=== PATIENT | female | born 1930 | race American Indian/Alaskan Native ===

== ENCOUNTER 2017-07-13 11:46 | Inpatient (IN) | payer MEDICARE ==
--- NOTE | 2017-07-13 12:38 | XRay Report ---
AP CHEST: HISTORY: Shortness of breath The lungs are severely hyperinflated consistent with advanced emphysema. No evidence for pneumonia, pleural fluid or pneumothorax. No pulmonary mass. Heart size and pulmonary vascularity are within normal limits. The bony structures are intact. IMPRESSION: Advanced emphysema. No acute process identified.
--- NOTE | 2017-07-13 12:42 | Emergency Department Report ---
ED Shortness of Breath HPI - General Chief Complaint: Dyspnea/Respdistress Stated Complaint: RAZ Time Seen by Provider: 07/13/17 12:33 Source: EMS Mode of arrival: Ambulatory Limitations: Physical Limitation - History of Present Illness Initial Comments: Patient is 86 years old female brought by EMS from home with a chief complaint of shortness of breath. Patient has history of COPD and dementia. EMS stated that family told him that she denies shortness of breath for the last 2-3 days. Initial oxygen saturation was 87% on room air. CVA breathing treatment and her oxygen saturation now is in the 90. Patient stated that she's been coughing also. She denied any fever, nausea or vomiting. MD Complaint: shortness of breath, cough - Related Data Home Medications Medication Instructions Recorded Confirmed Last Taken ALPRAZolam [Xanax] 1 mg PO QHS 07/13/17 07/13/17 Unknown Sennosides [Senna] 8.6 mg PO DAILY 07/13/17 07/13/17 Unknown diphenhydrAMINE [Benadryl CAP] 25 mg PO Q8HR PRN 07/13/17 07/13/17 Unknown traMADol [Ultram] 50 mg PO Q4HR PRN 07/13/17 07/13/17 Unknown Allergies Allergy/AdvReac Type Severity Reaction Status Date / Time No Known Allergies Allergy Unverified 07/13/17 12:09 ED Review of Systems ROS: Stated complaint: RAZ Other details as noted in HPI Comment: All other systems reviewed and negative Constitutional: denies: chills, fever Respiratory: cough, shortness of breath, wheezing. denies: SOB with exertion, SOB at rest Gastrointestinal: denies: abdominal pain, nausea, vomiting, diarrhea, constipation, hematemesis, melena, hematochezia Genitourinary: denies: urgency, discharge, abnormal menses, dyspareunia Musculoskeletal: denies: back pain Neurological: denies: headache, weakness, numbness, paresthesias, confusion, abnormal gait ED Past Medical Hx - Past Medical History Previous Medical History?: Yes Hx Hypertension: No Hx CVA: No Hx Heart Attack/AMI: No Hx Congestive Heart Failure: No Hx Diabetes: No Hx Deep Vein Thrombosis: No Hx Pulmonary Embolism: No Hx GERD: No Hx Liver Disease: No Hx Renal Disease: No Hx of Cancer: No Hx Sickle Cell Disease: No Hx Arthritis: No Hx Headaches / Migraines: No Hx Seizures: No Hx Kidney Stones: No Hx Psychiatric Treatment: Yes Hx Asthma: No Hx COPD: Yes Hx Tuberculosis: No Hx Dementia: Yes (possible early onset demntia) Hx HIV: No Additional medical history: 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 - Surgical History Past Surgical History?: No Hx Coronary Stent: No Hx Open Heart Surgery: No Hx Pacemaker: No Hx Internal Defibrillator: No Hx Cholecystectomy: No Hx Appendectomy: No Hx Breast Surgery: No - Social History Smoking Status: Former Smoker Substance Use Type: None - Medications Home Medications: Home Medications Medication Instructions Recorded Confirmed Last Taken Type ALPRAZolam [Xanax] 1 mg PO QHS 07/13/17 07/13/17 Unknown History Sennosides [Senna] 8.6 mg PO DAILY 07/13/17 07/13/17 Unknown History diphenhydrAMINE [Benadryl CAP] 25 mg PO Q8HR PRN 07/13/17 07/13/17 Unknown History traMADol [Ultram] 50 mg PO Q4HR PRN 07/13/17 07/13/17 Unknown History ED Physical Exam - General Limitations: Physical Limitation General appearance: alert, in distress (moderate respiratory distress, slightly tachypneic.) - Head Head exam: Present: atraumatic, normocephalic, normal inspection - Eye Eye exam: Present: normal appearance - ENT ENT exam: Present: normal exam, normal orophraynx, mucous membranes moist - Neck Neck exam: Present: normal inspection. Absent: tenderness, meningismus - Respiratory Respiratory exam: Present: wheezes, rales, rhonchi. Absent: respiratory distress, stridor - Cardiovascular Cardiovascular Exam: Present: regular rate, normal rhythm, normal heart sounds - GI/Abdominal GI/Abdominal exam: Present: soft, normal bowel sounds. Absent: distended, tenderness, guarding, rebound, rigid, organomegaly, mass, bruit, pulsatile mass , hernia - Extremities Exam Extremities exam: Present: normal inspection, full ROM, normal capillary refill - Back Exam Back exam: Present: normal inspection, full ROM. Absent: tenderness, CVA tenderness (R), CVA tenderness (L), muscle spasm, paraspinal tenderness, vertebral tenderness - Neurological Exam Neurological exam: Present: alert, oriented X3, CN II-XII intact, normal gait - Skin Skin exam: Present: warm, intact, normal color ED Course Vital Signs 07/13/17 07/13/17 07/13/17 11:54 12:00 12:02 Temperature 98.5 F Pulse Rate 85 85 Respiratory 33 H 30 H Rate Blood Pressure 146/75 145/70 Blood Pressure 145/70 [Right] O2 Sat by Pulse 97 94 94 Oximetry 07/13/17 07/13/17 07/13/17 12:15 12:23 12:30 Temperature Pulse Rate 77 Respiratory 18 15 Rate Blood Pressure 146/75 141/80 Blood Pressure [Right] O2 Sat by Pulse 94 92 93 Oximetry 07/13/17 12:45 Temperature Pulse Rate Respiratory Rate Blood Pressure 146/75 Blood Pressure [Right] O2 Sat by Pulse 95 Oximetry ED Medical Decision Making - Lab Data Result diagrams: 07/13/17 12:37 07/13/17 12:33 - EKG Data -: EKG Interpreted by Tx EKG shows normal: sinus rhythm Rate: normal - EKG Data Interpretation: no acute changes - Radiology Data Radiology results: report reviewed Referring Physician: TONY PRESTON Patient Name: JUAN DAVID GOLDSTEIN Date of : 1930 Sex: Female Report Date: 2017-07-13 Report Status: Finalized Findings [address] [address] XRay Report Signed Patient: JUAN DAVID GOLDSTEIN MR#: [id number] : 1930 Acct:[id number] Age/Sex: 86 / F ADM Date: 07/13/17 Loc: ED Attending Dr: Ordering Physician: TONY PRESTON Date of Service: 07/13/17 Procedure(s): XR chest 1V ap Accession Number(s): [id number] cc: TONY PRESTON Fluoro Time In Minutes: AP CHEST: HISTORY: Shortness of breath The lungs are severely hyperinflated consistent with advanced emphysema. No evidence for pneumonia, pleural fluid or pneumothorax. No pulmonary mass. Heart size and pulmonary vascularity are within normal limits. The bony structures are intact. IMPRESSION: Advanced emphysema. No acute process identified. Transcribed By: TTR Dictated By: MOHAMUD DYE JR, MD Electronically Authenticated By: MOHAMUD DYE JR, MD Signed Date/Time: 07/13/171227 DD/ TD/TT: 07/13/178 - Medical Decision Making Discussed patient with Dr Mcnamara, he agreed to admit to his service. Critical Care Time: Yes Critical care time in (mins) excluding proc time.: 30 Critical care attestation.: If time is entered above; I have spent that time in minutes in the direct care of this critically ill patient, excluding procedure time. ED Disposition Clinical Impression: COPD exacerbation, Acute respiratory failure, Hypokalemia Disposition: OP ADMIT IP TO THIS HOSP Is pt being admited?: Yes Condition: Stable Instructions: Chronic Obstructive Pulmonary Disease (ED)
[2017-07-13] MEDS ORDERED: LEVAQUIN 500MG/100ML 500 MG/100 ML BAG IV ONE (12:43)
[2017-07-13] MEDS ORDERED: ATROVENT IH ONE (12:43)
[2017-07-13] MEDS ORDERED: XOPENEX IH ONE (12:43)
[2017-07-13 13:19] LABS: Hematocrit 32.4 % (30.3-42.9); Mean Corpuscular HGB Conc 34 % (30-34); Mean Corpuscular Hemoglobin 34 pg (28-32); Mean Corpuscular Volume 99 fl (79-97); Platelet Count 180 K/mm3 (140-440); Red Blood Count 3.26 M/mm3 (3.65-5.03); Red Cell Distribution Width 15.4 % (13.2-15.2)
[2017-07-13 13:51] LABS: Bilirubin,Direct 0.5 mg/dL (0-0.2)
--- NOTE | 2017-07-13 14:09 | History and Physical Report ---
History of Present Illness Chief complaint: I cant breathe History of present illness: 86 YO Female with COPD, Dementia, Cancer presents to ED for evaluation. Pt has dementia and is unable to provide detailed history. Pt history taken from ED staff and EMS. Pt family states that patient has experienced shortness of breath for the past 3 days with worsening symptoms over the past 1 day. EMS notified and upon arrival the patient was found to have Acute Hypoxemic respiratory Failure with Pulse oximetry of 87%. Pt transported to [facility] for further carea and evaluation. Pt seen and evaluated in ED and found to have COPD Exacerbation complicated by Respiratory Failure. Pt admitted to [facility] unit. No reports of fever, chills, Syncope, CP, palpitations, NVD, Trauma, Fall, productive cough, or recent ill contacts. Past History Past Medical History: COPD, other (Dementia) Past Surgical History: No surgical history, Other (reviewed) Social history: . denies: smoking, alcohol abuse, prescription drug abuse Family history: no significant family history (reviewed) Medications and Allergies Allergies Allergy/AdvReac Type Severity Reaction Status Date / Time No Known Allergies Allergy Unverified 07/13/17 12:09 Home Medications Medication Instructions Recorded Confirmed Last Taken Type ALPRAZolam [Xanax] 1 mg PO QHS 07/13/17 07/13/17 Unknown History Sennosides [Senna] 8.6 mg PO DAILY 07/13/17 07/13/17 Unknown History diphenhydrAMINE [Benadryl CAP] 25 mg PO Q8HR PRN 07/13/17 07/13/17 Unknown History traMADol [Ultram] 50 mg PO Q4HR PRN 07/13/17 07/13/17 Unknown History Active Meds: Active Medications Potassium Chloride (Kcl 10meq/100ml) 10 meq in 100 mls @ 100 mls/hr IV Q1H KEVIN Stop: 07/13/17 15:59 Review of Systems ROS unobtainable: due to mental status Exam - Constitutional Vitals: Temp Pulse Resp BP Pulse Ox 98.5 F 77 15 146/75 95 07/13/17 12:02 07/13/17 12:15 07/13/17 12:23 07/13/17 12:45 07/13/17 12:45 General appearance: Present: mild distress, cachectic, disheveled - EENT Eyes: Present: PERRL ENT: hearing intact, clear oral mucosa - Neck Neck: Present: supple, normal ROM - Respiratory Respiratory effort: labored, pursed lips, accessory muscle use Respiratory: bilateral: diminished, rhonchi - Cardiovascular Heart Sounds: Present: S1 & S2. Absent: rub, click - Extremities Extremities: pulses symmetrical, No edema Peripheral Pulses: within normal limits - Abdominal General gastrointestinal: Present: soft, non-tender, non-distended, normal bowel sounds Female genitourinary: Present: normal - Musculoskeletal Musculoskeletal: generalized weakness - Psychiatric Psychiatric: no intact judgment & insight, no memory intact - Neurologic Neurologic: moves all extremities, no gait normal Results - Labs CBC & Chem 7: 07/13/17 12:37 07/13/17 12:33 Labs: Abnormal lab results 07/13/17 07/13/17 07/13/17 Range/Units 12:33 12:37 13:12 WBC 4.2 L (4.5-11.0) K/mm3 RBC 3.26 L (3.65-5.03) M/mm3 MCV 99 H (79-97) fl MCH 34 H (28-32) pg RDW 15.4 H (13.2-15.2) % POC ABG pH (7.35-7.45) POC ABG pCO2 (35-45) POC ABG pO2 (80-105) Potassium 2.6 L* (3.6-5.0) mmol/L Chloride 96.3 L (98-107) mmol/L BUN 25 H (7-17) mg/dL Creatinine 2.6 H (0.7-1.2) mg/dL Glucose 106 H (65-100) mg/dL Total Bilirubin 1.40 H (0.1-1.2) mg/dL Direct Bilirubin 0.5 H (0-0.2) mg/dL AST 48 H (5-40) units/L Alkaline Phosphatase 311 H (35-129) units/L Albumin 3.0 L (3.9-5) g/dL 07/13/17 Range/Units 13:43 WBC (4.5-11.0) K/mm3 RBC (3.65-5.03) M/mm3 MCV (79-97) fl MCH (28-32) pg RDW (13.2-15.2) % POC ABG pH 7.483 H (7.35-7.45) POC ABG pCO2 33.4 L (35-45) POC ABG pO2 59 L (80-105) Potassium (3.6-5.0) mmol/L Chloride (98-107) mmol/L BUN (7-17) mg/dL Creatinine (0.7-1.2) mg/dL Glucose (65-100) mg/dL Total Bilirubin (0.1-1.2) mg/dL Direct Bilirubin (0-0.2) mg/dL AST (5-40) units/L Alkaline Phosphatase (35-129) units/L Albumin (3.9-5) g/dL Assessment and Plan - Patient Problems (1) Acute respiratory failure Current Visit: No Status: Acute Qualifiers: Respiratory failure complication: hypoxia Qualified Code(s): J96.01 - Acute respiratory failure with hypoxia Plan to address problem: Supplemental oxygen, NIPPV as clinically indicated, Chest X ray, pulse oximetry (2) ARF (acute renal failure) Current Visit: Yes Status: Acute Qualifiers: Acute renal failure type: with acute tubular necrosis Qualified Code(s): N17.0 - Acute kidney failure with tubular necrosis Plan to address problem: IVF resuscitation therapy, monitor uop q shift, BMP, monitor creatnine level (3) COPD exacerbation Current Visit: No Status: Acute Plan to address problem: Supplemental oxygen, nebulizer therapy, IV steroid therapy, IV antibiotic therapy, Magnesium sulfate, (4) Dementia Current Visit: Yes Status: Acute Qualifiers: Dementia behavioral disturbance: without behavioral disturbance Plan to address problem: Ativan prn, supportive care (5) DVT prophylaxis Current Visit: Yes Status: Acute Plan to address problem: scd to ble while in bed.
[2017-07-13] MEDS ORDERED: ZOFRAN IV PRN (14:11)
[2017-07-13] MEDS ORDERED: SODIUM CHLORIDE FLUSH SYRINGE 10 ML IV PRN (14:11)
[2017-07-13] MEDS ORDERED: TYLENOL PO PRN (14:11)
[2017-07-13] MEDS ORDERED: BENADRYL PO PRN (14:13)
[2017-07-13] MEDS ORDERED: MAGNESIUM SULFATE 1 GM in WATER FOR INJ (PF) 23 ML IV ONE (14:13)
[2017-07-13] MEDS ORDERED: ULTRAM PO PRN (14:13)
[2017-07-13 14:44] LABS: Platelet Estimate Consistent w Auto; RBC Morphology Normal; Total Cells Counted 100
[2017-07-13] MEDS: KCL 10MEQ/100ML 10 MEQ/100 ML BAG IV SCH ×2 (14:50→18:29)
[2017-07-13] MEDS ORDERED: NACL 0.9% 250ML 250 ML ONE (14:55)
[2017-07-13] MEDS ORDERED: MAGNESIUM SULFATE IV ONE (15:30)
[2017-07-13] MEDS ORDERED: MAGNESIUM SULFATE 1 GM in NACL 0.9% 50 ML IV ONE (16:00)
[2017-07-13] MEDS: XANAX PO SCH (22:11)
[2017-07-13] MEDS: SODIUM CHLORIDE FLUSH SYRINGE 10 ML IV SCH (22:12)
[2017-07-14] MEDS ORDERED: POTASSIUM CHLORIDE FEEDTUBE NR (08:17)
--- NOTE | 2017-07-14 08:22 | Progress Note ---
Assessment and Plan Assessment and plan: 86 YO Female with COPD, Dementia, Cancer presents to ED for evaluation. Pt has dementia and is unable to provide detailed history. Pt history taken from ED staff and EMS. Pt family states that patient has experienced shortness of breath for the past 3 days with worsening symptoms over the past 1 day. EMS notified and upon arrival the patient was found to have Acute Hypoxemic respiratory Failure with Pulse oximetry of 87%. Pt transported to [facility] for further carea and evaluation. Pt seen and evaluated in ED and found to have COPD Exacerbation complicated by Respiratory Failure. Pt admitted to [facility] unit. No reports of fever, chills, Syncope, CP, palpitations, NVD, Trauma, Fall, productive cough, or recent ill contacts. COPD exacerbation - On IV Solu-Medrol, Levaquin, nebulizer treatment, oxygen support - Follow blood culture - Patient showed marked improvement ? Acute renal failure - Patient is on IV fluids - Check BMP - Patient encouraged to drink more fluid Hypokalemia - Supplemented, will check magnesium and BMP now Severe malnutrition - Nutrition consult DVT prophylaxis - On heparin Disposition - Possible discharge tomorrow History Interval history: Patient was seen and evaluated this morning, patient said her breathing is getting better. Nausea complaints. Hospitalist Physical - Physical exam Narrative exam: Not in cardiopulmonary distress. The patient is cachectic. Vital signs as documented. Head exam is unremarkable. No scleral icterus . Neck is without jugular venous distension, thyromegaly, or carotid bruits. Lungs scattered wheezing. Cardiac exam reveals regular rate and Rhythm. First and second heart sounds normal. No murmurs, rubs or gallops. Abdominal exam reveals normal bowel sounds, no masses, no organomegaly and no aortic enlargement. Extremities are nonedematous and both femoral and pedal pulses are normal. TAX MAP TECHNICIAN: Alert and oriented 3. No focal weakness. - Constitutional Vitals: Temp Pulse Resp BP Pulse Ox 98.4 F 78 20 140/81 100 07/14/17 07:48 07/14/17 07:48 07/14/17 07:48 07/14/17 07:48 07/14/17 07:48 General appearance: Present: mild distress, cachectic, disheveled Results - Labs CBC & Chem 7: 07/13/17 12:37 07/13/17 12:33 Labs: Laboratory Last Values WBC 4.2 K/mm3 (4.5-11.0) L 07/13/17 12:37 RBC 3.26 M/mm3 (3.65-5.03) L 07/13/17 12:37 Hgb 11.0 gm/dl (10.1-14.3) 07/13/17 12:37 Hct 32.4 % (30.3-42.9) 07/13/17 12:37 MCV 99 fl (79-97) H 07/13/17 12:37 MCH 34 pg (28-32) H 07/13/17 12:37 MCHC 34 % (30-34) 07/13/17 12:37 RDW 15.4 % (13.2-15.2) H 07/13/17 12:37 Plt Count 180 K/mm3 (140-440) 07/13/17 12:37 [place] % (Auto) Commercial Real Estate Assistant 07/13/17 12:37 Add Manual Diff Complete 07/13/17 12:37 Total Counted 100 07/13/17 12:37 Seg Neuts % (Manual) 63.0 % (40.0-70.0) 07/13/17 12:37 Band Neutrophils % 0 % 07/13/17 12:37 Lymphocytes % (Manual) 19.0 % (13.4-35.0) 07/13/17 12:37 Reactive Lymphs % (Man) 0 % 07/13/17 12:37 Monocytes % (Manual) 10.0 % (0.0-7.3) H 07/13/17 12:37 Eosinophils % (Manual) 6.0 % (0.0-4.3) H 07/13/17 12:37 Basophils % (Manual) 2.0 % (0.0-1.8) H 07/13/17 12:37 Metamyelocytes % 0 % 07/13/17 12:37 Myelocytes % 0 % 07/13/17 12:37 Promyelocytes % 0 % 07/13/17 12:37 Blast Cells % 0 % 07/13/17 12:37 Nucleated RBC % Not Reportable 07/13/17 12:37 Seg Neutrophils # Man 2.6 K/mm3 (1.8-7.7) 07/13/17 12:37 Band Neutrophils # 0.0 K/mm3 07/13/17 12:37 Lymphocytes # (Manual) 0.8 K/mm3 (1.2-5.4) L 07/13/17 12:37 Abs React Lymphs (Man) 0.0 K/mm3 07/13/17 12:37 Monocytes # (Manual) 0.4 K/mm3 (0.0-0.8) 07/13/17 12:37 Eosinophils # (Manual) 0.3 K/mm3 (0.0-0.4) 07/13/17 12:37 Basophils # (Manual) 0.1 K/mm3 (0.0-0.1) 07/13/17 12:37 Metamyelocytes # 0.0 K/mm3 07/13/17 12:37 Myelocytes # 0.0 K/mm3 07/13/17 12:37 Promyelocytes # 0.0 K/mm3 07/13/17 12:37 Blast Cells # 0.0 K/mm3 07/13/17 12:37 WBC Morphology Not Reportable 07/13/17 12:37 Hypersegmented Neuts Not Reportable 07/13/17 12:37 Hyposegmented Neuts Not Reportable 07/13/17 12:37 Hypogranular Neuts Not Reportable 07/13/17 12:37 Smudge Cells Not Reportable 07/13/17 12:37 Toxic Granulation Not Reportable 07/13/17 12:37 Toxic Vacuolation Not Reportable 07/13/17 12:37 Dohle Bodies Not Reportable 07/13/17 12:37 Pelger-Huet Anomaly Not Reportable 07/13/17 12:37 Marylou Rods Not Reportable 07/13/17 12:37 Platelet Estimate Consistent w auto 07/13/17 12:37 Clumped Platelets Not Reportable 07/13/17 12:37 Plt Clumps, EDTA Not Reportable 07/13/17 12:37 Large Platelets Not Reportable 07/13/17 12:37 Giant Platelets Not Reportable 07/13/17 12:37 Platelet Satelliting Not Reportable 07/13/17 12:37 Plt Morphology Comment Not Reportable 07/13/17 12:37 RBC Morphology Normal 07/13/17 12:37 Dimorphic RBCs Not Reportable 07/13/17 12:37 Polychromasia Not Reportable 07/13/17 12:37 Hypochromasia Not Reportable 07/13/17 12:37 Poikilocytosis Not Reportable 07/13/17 12:37 Anisocytosis Not Reportable 07/13/17 12:37 Microcytosis Not Reportable 07/13/17 12:37 Macrocytosis Not Reportable 07/13/17 12:37 Spherocytes Not Reportable 07/13/17 12:37 Pappenheimer Bodies Not Reportable 07/13/17 12:37 Sickle Cells Not Reportable 07/13/17 12:37 Target Cells Not Reportable 07/13/17 12:37 Tear Drop Cells Not Reportable 07/13/17 12:37 Ovalocytes Not Reportable 07/13/17 12:37 Helmet Cells Not Reportable 07/13/17 12:37 [place] Bodies Not Reportable 07/13/17 12:37 [place] Rings Not Reportable 07/13/17 12:37 [place] Cells Not Reportable 07/13/17 12:37 Bite Cells Not Reportable 07/13/17 12:37 Crenated Cell Not Reportable 07/13/17 12:37 Elliptocytes Not Reportable 07/13/17 12:37 Acanthocytes (Spur) Not Reportable 07/13/17 12:37 Rouleaux Not Reportable 07/13/17 12:37 Hemoglobin C Crystals Not Reportable 07/13/17 12:37 Schistocytes Not Reportable 07/13/17 12:37 Malaria parasites Not Reportable 07/13/17 12:37 [place] Bodies Not Reportable 07/13/17 12:37 Hem Pathologist Commnt No 07/13/17 12:37 POC ABG pH 7.483 (7.35-7.45) H 07/13/17 13:43 POC ABG pCO2 33.4 (35-45) L 07/13/17 13:43 POC ABG pO2 59 (80-105) L 07/13/17 13:43 POC ABG HCO3 25.1 07/13/17 13:43 POC ABG Total CO2 26 07/13/17 13:43 POC ABG O2 Sat 92 07/13/17 13:43 POC ABG Base Excess 2 07/13/17 13:43 FiO2 21 % 07/13/17 13:43 Sodium 137 mmol/L (137-145) 07/13/17 12:33 Potassium 2.6 mmol/L (3.6-5.0) L* 07/13/17 12:33 Chloride 96.3 mmol/L (98-107) L 07/13/17 12:33 Carbon Dioxide 27 mmol/L (22-30) 07/13/17 12:33 Anion Gap 16 mmol/L 07/13/17 12:33 BUN 25 mg/dL (7-17) H 07/13/17 12:33 Creatinine 2.6 mg/dL (0.7-1.2) H 07/13/17 12:33 Estimated GFR 21 ml/min 07/13/17 12:33 BUN/Creatinine Ratio 10 % 07/13/17 12:33 Glucose 106 mg/dL (65-100) H 07/13/17 12:33 Calcium 10.0 mg/dL (8.4-10.2) 07/13/17 12:33 Total Bilirubin 1.40 mg/dL (0.1-1.2) H 07/13/17 13:12 Direct Bilirubin 0.5 mg/dL (0-0.2) H 07/13/17 13:12 Indirect Bilirubin 0.9 mg/dL 07/13/17 13:12 AST 48 units/L (5-40) H 07/13/17 13:12 ALT 32 units/L (7-56) 07/13/17 13:12 Alkaline Phosphatase 311 units/L (35-129) H 07/13/17 13:12 NT-Pro-B Natriuret Pep 569.4 pg/mL (0-900) 07/13/17 13:12 Total Protein 8.0 g/dL (6.3-8.2) 07/13/17 13:12 Albumin 3.0 g/dL (3.9-5) L 07/13/17 13:12 Albumin/Globulin Ratio 0.6 % 07/13/17 13:12 - Imaging and Cardiology Chest x-ray: report reviewed (advanced emphysema)
[2017-07-14] MEDS ORDERED: NACL 0.9% 1000 ML 1,000 ML IV SCH (09:00)
[2017-07-14] MEDS ORDERED: LEVAQUIN 500MG/100ML 500 MG/100 ML BAG IV SCH (10:00)
[2017-07-14] MEDS: SODIUM CHLORIDE FLUSH SYRINGE 10 ML IV SCH ×2 (10:47→23:47)
[2017-07-14] MEDS: HEPARIN SUB-Q SCH ×2 (10:48→23:47)
[2017-07-14] MEDS: SENOKOT PO SCH (10:48)
[2017-07-14] MEDS: PROVENTIL IH PRN ×2 (12:55→21:30)
[2017-07-14 14:11] LABS: Calcium 9.4 mg/dL (8.4-10.2)
[2017-07-14] MEDS ORDERED: K-DUR PO STA (14:56)
[2017-07-14 19:15] LABS: Calcium 9.1 mg/dL (8.4-10.2)
[2017-07-14] MEDS: XANAX PO SCH (23:46)
[2017-07-15 05:37] LABS: Basophils % (Auto) 0.1 % (0.0-1.8); Hematocrit 30.7 % (30.3-42.9); Hemoglobin 10.6 gm/dl (10.1-14.3); Lymphocytes # (Auto) 0.7 K/mm3 (1.2-5.4); Lymphocytes % (Auto) 11.8 % (13.4-35.0); Mean Corpuscular HGB Conc 35 % (30-34); Mean Corpuscular Hemoglobin 34 pg (28-32); Mean Corpuscular Volume 98 fl (79-97); Monocytes # (Auto) 0.2 K/mm3 (0.0-0.8); Monocytes % (Auto) 2.9 % (0.0-7.3); Platelet Count 159 K/mm3 (140-440); Red Blood Count 3.13 M/mm3 (3.65-5.03); Red Cell Distribution Width 15.4 % (13.2-15.2)
[2017-07-15] MEDS: HEPARIN SUB-Q SCH (09:58)
[2017-07-15] MEDS: SODIUM CHLORIDE FLUSH SYRINGE 10 ML IV SCH (10:00)
[2017-07-15] MEDS: SENOKOT PO SCH (10:00)
[2017-07-15] MEDS ORDERED: LEVAQUIN 500MG/100ML 500 MG/100 ML BAG IV SCH (10:00)
[2017-07-15] MEDS: NORVASC PO SCH (10:01)
[2017-07-15] MEDS: PROVENTIL IH PRN (10:28)
--- NOTE | 2017-07-15 13:10 | Progress Note ---
Assessment and Plan Assessment and plan: 86 YO Female with COPD, Dementia, Cancer presents to ED for evaluation. Pt has dementia and is unable to provide detailed history. Pt history taken from ED staff and EMS. Pt family states that patient has experienced shortness of breath for the past 3 days with worsening symptoms over the past 1 day. EMS notified and upon arrival the patient was found to have Acute Hypoxemic respiratory Failure with Pulse oximetry of 87%. Pt transported to [facility] for further carea and evaluation. Pt seen and evaluated in ED and found to have COPD Exacerbation complicated by Respiratory Failure. Pt admitted to [facility] unit. No reports of fever, chills, Syncope, CP, palpitations, NVD, Trauma, Fall, productive cough, or recent ill contacts. COPD exacerbation - On IV Solu-Medrol, Levaquin, nebulizer treatment, oxygen support - Follow blood culture - Patient showed marked improvement ? Acute renal failure - Patient is on IV fluids - Check BMP - No improvement in creatinine level, nephrology consulted Hypokalemia - Supplemented, and resolved Severe malnutrition - Nutrition consult DVT prophylaxis - On heparin Disposition - We'll follow nephrology recommendation History Interval history: Patient was seen and evaluated this morning, patient said her breathing is getting better. No new complaints. Hospitalist Physical - Physical exam Narrative exam: Not in cardiopulmonary distress. The patient is cachectic. Vital signs as documented. Head exam is unremarkable. No scleral icterus . Neck is without jugular venous distension, thyromegaly, or carotid bruits. Lungs scattered wheezing. Cardiac exam reveals regular rate and Rhythm. First and second heart sounds normal. No murmurs, rubs or gallops. Abdominal exam reveals normal bowel sounds, no masses, no organomegaly and no aortic enlargement. Extremities are nonedematous and both femoral and pedal pulses are normal. 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 No focal weakness. - Constitutional Vitals: Temp Pulse Resp BP Pulse Ox 97.7 F 93 H 18 140/77 100 07/15/17 07:21 07/15/17 10:39 07/15/17 10:39 07/15/17 10:01 07/15/17 09:04 General appearance: Present: mild distress, cachectic, disheveled Results - Labs CBC & Chem 7: 07/15/17 05:06 07/15/17 05:06 Labs: Laboratory Last Values WBC 6.0 K/mm3 (4.5-11.0) 07/15/17 05:06 RBC 3.13 M/mm3 (3.65-5.03) L 07/15/17 05:06 Hgb 10.6 gm/dl (10.1-14.3) 07/15/17 05:06 Hct 30.7 % (30.3-42.9) 07/15/17 05:06 MCV 98 fl (79-97) H 07/15/17 05:06 MCH 34 pg (28-32) H 07/15/17 05:06 MCHC 35 % (30-34) H 07/15/17 05:06 RDW 15.4 % (13.2-15.2) H 07/15/17 05:06 Plt Count 159 K/mm3 (140-440) 07/15/17 05:06 Lymph % (Auto) 11.8 % (13.4-35.0) L 07/15/17 05:06 [place] % (Auto) 2.9 % (0.0-7.3) 07/15/17 05:06 Eos % (Auto) 0.0 % (0.0-4.3) 07/15/17 05:06 Baso % (Auto) 0.1 % (0.0-1.8) 07/15/17 05:06 Lymph # 0.7 K/mm3 (1.2-5.4) L 07/15/17 05:06 [place] # 0.2 K/mm3 (0.0-0.8) 07/15/17 05:06 Eos # 0.0 K/mm3 (0.0-0.4) 07/15/17 05:06 Baso # 0.0 K/mm3 (0.0-0.1) 07/15/17 05:06 Add Manual Diff Complete 07/13/17 12:37 Total Counted 100 07/13/17 12:37 Seg Neutrophils % 85.2 % (40.0-70.0) H 07/15/17 05:06 Seg Neuts % (Manual) 63.0 % (40.0-70.0) 07/13/17 12:37 Band Neutrophils % 0 % 07/13/17 12:37 Lymphocytes % (Manual) 19.0 % (13.4-35.0) 07/13/17 12:37 Reactive Lymphs % (Man) 0 % 07/13/17 12:37 Monocytes % (Manual) 10.0 % (0.0-7.3) H 07/13/17 12:37 Eosinophils % (Manual) 6.0 % (0.0-4.3) H 07/13/17 12:37 Basophils % (Manual) 2.0 % (0.0-1.8) H 07/13/17 12:37 Metamyelocytes % 0 % 07/13/17 12:37 Myelocytes % 0 % 07/13/17 12:37 Promyelocytes % 0 % 07/13/17 12:37 Blast Cells % 0 % 07/13/17 12:37 Nucleated RBC % Not Reportable 07/13/17 12:37 Seg Neutrophils # 5.2 K/mm3 (1.8-7.7) 07/15/17 05:06 Seg Neutrophils # Man 2.6 K/mm3 (1.8-7.7) 07/13/17 12:37 Band Neutrophils # 0.0 K/mm3 07/13/17 12:37 Lymphocytes # (Manual) 0.8 K/mm3 (1.2-5.4) L 07/13/17 12:37 Abs React Lymphs (Man) 0.0 K/mm3 07/13/17 12:37 Monocytes # (Manual) 0.4 K/mm3 (0.0-0.8) 07/13/17 12:37 Eosinophils # (Manual) 0.3 K/mm3 (0.0-0.4) 07/13/17 12:37 Basophils # (Manual) 0.1 K/mm3 (0.0-0.1) 07/13/17 12:37 Metamyelocytes # 0.0 K/mm3 07/13/17 12:37 Myelocytes # 0.0 K/mm3 07/13/17 12:37 Promyelocytes # 0.0 K/mm3 07/13/17 12:37 Blast Cells # 0.0 K/mm3 07/13/17 12:37 WBC Morphology Not Reportable 07/13/17 12:37 Hypersegmented Neuts Not Reportable 07/13/17 12:37 Hyposegmented Neuts Not Reportable 07/13/17 12:37 Hypogranular Neuts Not Reportable 07/13/17 12:37 Smudge Cells Not Reportable 07/13/17 12:37 Toxic Granulation Not Reportable 07/13/17 12:37 Toxic Vacuolation Not Reportable 07/13/17 12:37 Dohle Bodies Not Reportable 07/13/17 12:37 Pelger-Huet Anomaly Not Reportable 07/13/17 12:37 Marylou Rods Not Reportable 07/13/17 12:37 Platelet Estimate Consistent w auto 07/13/17 12:37 Clumped Platelets Not Reportable 07/13/17 12:37 Plt Clumps, EDTA Not Reportable 07/13/17 12:37 Large Platelets Not Reportable 07/13/17 12:37 Giant Platelets Not Reportable 07/13/17 12:37 Platelet Satelliting Not Reportable 07/13/17 12:37 Plt Morphology Comment Not Reportable 07/13/17 12:37 RBC Morphology Normal 07/13/17 12:37 Dimorphic RBCs Not Reportable 07/13/17 12:37 Polychromasia Not Reportable 07/13/17 12:37 Hypochromasia Not Reportable 07/13/17 12:37 Poikilocytosis Not Reportable 07/13/17 12:37 Anisocytosis Not Reportable 07/13/17 12:37 Microcytosis Not Reportable 07/13/17 12:37 Macrocytosis Not Reportable 07/13/17 12:37 Spherocytes Not Reportable 07/13/17 12:37 Pappenheimer Bodies Not Reportable 07/13/17 12:37 Sickle Cells Not Reportable 07/13/17 12:37 Target Cells Not Reportable 07/13/17 12:37 Tear Drop Cells Not Reportable 07/13/17 12:37 Ovalocytes Not Reportable 07/13/17 12:37 Helmet Cells Not Reportable 07/13/17 12:37 Solo-Ludden Bodies Not Reportable 07/13/17 12:37 [place] Rings Not Reportable 07/13/17 12:37 [place] Cells Not Reportable 07/13/17 12:37 Bite Cells Not Reportable 07/13/17 12:37 Crenated Cell Not Reportable 07/13/17 12:37 Elliptocytes Not Reportable 07/13/17 12:37 Acanthocytes (Spur) Not Reportable 07/13/17 12:37 Rouleaux Not Reportable 07/13/17 12:37 Hemoglobin C Crystals Not Reportable 07/13/17 12:37 Schistocytes Not Reportable 07/13/17 12:37 Malaria parasites Not Reportable 07/13/17 12:37 Monico Bodies Not Reportable 07/13/17 12:37 Hem Pathologist Commnt No 07/13/17 12:37 POC ABG pH 7.483 (7.35-7.45) H 07/13/17 13:43 POC ABG pCO2 33.4 (35-45) L 07/13/17 13:43 POC ABG pO2 59 (80-105) L 07/13/17 13:43 POC ABG HCO3 25.1 07/13/17 13:43 POC ABG Total CO2 26 07/13/17 13:43 POC ABG O2 Sat 92 07/13/17 13:43 POC ABG Base Excess 2 07/13/17 13:43 FiO2 21 % 07/13/17 13:43 Sodium 136 mmol/L (137-145) L 07/15/17 05:06 Potassium 3.6 mmol/L (3.6-5.0) 07/15/17 05:06 Chloride 103.1 mmol/L (98-107) 07/15/17 05:06 Carbon Dioxide 20 mmol/L (22-30) L 07/15/17 05:06 Anion Gap 17 mmol/L 07/15/17 05:06 BUN 28 mg/dL (7-17) H 07/15/17 05:06 Creatinine 2.2 mg/dL (0.7-1.2) H 07/15/17 05:06 Estimated GFR 26 ml/min 07/15/17 05:06 BUN/Creatinine Ratio 13 % 07/15/17 05:06 Glucose 159 mg/dL (65-100) H 07/15/17 05:06 Calcium 9.0 mg/dL (8.4-10.2) 07/15/17 05:06 Magnesium 1.20 mg/dL (1.7-2.3) L 07/14/17 10:17 Total Bilirubin 1.40 mg/dL (0.1-1.2) H 07/13/17 13:12 Direct Bilirubin 0.5 mg/dL (0-0.2) H 07/13/17 13:12 Indirect Bilirubin 0.9 mg/dL 07/13/17 13:12 AST 48 units/L (5-40) H 07/13/17 13:12 ALT 32 units/L (7-56) 07/13/17 13:12 Alkaline Phosphatase 311 units/L (35-129) H 07/13/17 13:12 NT-Pro-B Natriuret Pep 569.4 pg/mL (0-900) 07/13/17 13:12 Total Protein 8.0 g/dL (6.3-8.2) 07/13/17 13:12 Albumin 3.0 g/dL (3.9-5) L 07/13/17 13:12 Albumin/Globulin Ratio 0.6 % 07/13/17 13:12
--- NOTE | 2017-07-15 14:14 | Consultation ---
History of Present Illness - Reason for Consult Consult date: 07/15/17 acute renal failure, hypokalemia, metabolic acidosis - History of Present Illness The patient is an 86 YO AAF with medical history significant for COPD, Dementia and Cancer who presented to ED 2 days ago for evaluation of shortness of breath of 3 days duration. Patient is confused to give any history and there was no family member at the bedside. Her pulse oximetry measured 87% on RA. She is being treated for COPD Exacerbation complicated by Respiratory Failure. Nephrology was consulted for SHANDA and hypokalemia. Her initial K was 2.9 with creatinine 2.5. Baseline renal function is unknown. Past History Past Medical History: COPD, other (Dementia) Past Surgical History: No surgical history, Other (reviewed) Social history: . denies: smoking, alcohol abuse, prescription drug abuse Family history: no significant family history (reviewed) Medications and Allergies Allergies Allergy/AdvReac Type Severity Reaction Status Date / Time No Known Allergies Allergy Unverified 07/13/17 12:09 Home Medications Medication Instructions Recorded Confirmed Last Taken Type ALPRAZolam [Xanax] 1 mg PO QHS 07/13/17 07/13/17 Unknown History Sennosides [Senna] 8.6 mg PO DAILY 07/13/17 07/13/17 Unknown History diphenhydrAMINE [Benadryl CAP] 25 mg PO Q8HR PRN 07/13/17 07/13/17 Unknown History traMADol [Ultram] 50 mg PO Q4HR PRN 07/13/17 07/13/17 Unknown History Active Meds: Active Medications Acetaminophen (Tylenol) 650 mg PO Q4H PRN PRN Reason: Pain MILD(1-3)/Fever >100.5/MARIA Albuterol (Proventil) 2.5 mg IH Q4HRT PRN PRN Reason: Shortness Of Breath Last Admin: 07/15/17 10:28 Dose: 2.5 mg Alprazolam (Xanax) 1 mg PO QHS KEVIN Last Admin: 07/14/17 23:46 Dose: 1 mg Amlodipine Besylate (Norvasc) 5 mg PO QDAY [facility] Last Admin: 07/15/17 10:01 Dose: 5 mg Diphenhydramine HCl (Benadryl) 25 mg PO Q8HR PRN PRN Reason: Pain Heparin Sodium (Porcine) (Heparin) 5,000 unit SUB-Q Q12HR [facility] Last Admin: 07/15/17 09:58 Dose: 5,000 unit Levofloxacin/Dextrose (Levaquin 500mg/100ml) 500 mg in 100 mls @ 100 mls/hr IV Q48H [facility]; Protocol Last Admin: 07/15/17 11:39 Dose: 100 mls/hr Sodium Chloride (Nacl 0.9% 1000 Ml) 1,000 mls @ 100 mls/hr IV DIRECT [facility] Last Admin: 07/14/17 10:48 Dose: 100 mls/hr Methylprednisolone Sodium Succinate (Solu-Medrol) 40 mg IV Q12HR [facility] Last Admin: 07/15/17 09:58 Dose: 40 mg Ondansetron HCl (Zofran) 4 mg IV Q8H PRN PRN Reason: Nausea And Vomiting Senna (Senokot) 8.6 mg PO DAILY [facility] Last Admin: 07/15/17 10:00 Dose: 8.6 mg Sodium Chloride (Sodium Chloride Flush Syringe 10 Ml) 10 ml IV BID [facility] Last Admin: 07/15/17 10:00 Dose: 10 ml Sodium Chloride (Sodium Chloride Flush Syringe 10 Ml) 10 ml IV PRN PRN PRN Reason: LINE FLUSH Tramadol HCl (Ultram) 50 mg PO Q4HR PRN PRN Reason: Pain Review of Systems ROS unobtainable: due to mental status Exam - Vital Signs Vital signs: Vital Signs Pulse Ox 97 07/13/17 11:54 - General Appearance General appearance: well-developed, appears stated age, frail, other (no distress) EENT: ATNC, PERRL, hearing intact Neck: Present: neck supple, trachea midline Respiratory: Clear to Ascultation Heart: regular, S1S2, no murmurs Gastrointestinal: Present: normoactive bowel sounds. Absent: tenderness Integumentary: warm and dry, chronic venous stasis Neurologic: confused, disoriented, other (able to move all 4 extremities, right eye blindness) Musculoskeletal: Present: other (no edema) Psychiatric: cooperative Results - Lab Results 07/15/17 05:06 07/15/17 05:06 Most recent lab results Calcium 9.0 mg/dL (8.4-10.2) 07/15/17 05:06 Magnesium 1.20 mg/dL (1.7-2.3) L 07/14/17 10:17 - Image Kidney/bladder ultrasound: pending Assessment and Plan 1. Acute kidney injury: SHANDA likely Vasomotor / hemodynamically mediated in the setting of volume depletion. Creatinine level is improving. Continue IV fluids. Suspect CKD. Renal US and Urine studies are pending. 2. Hypokalemia: K level is better. Follow K and Mg. 3. Anemia. 4. COPD exacerbation.
[2017-07-15] MEDS ORDERED: LASIX ONE (14:45)
[2017-07-15] MEDS ORDERED: LASIX IV ONE (15:00)
--- NOTE | 2017-07-15 15:35 | XRay Report ---
PORTABLE CHEST INDICATION: Chest congestion. COMPARISON: 07/13/2017 FINDINGS: Portable, frontal chest radiograph demonstrates stable cardiomediastinal silhouette. Grossly clear hyperinflated lungs/COPD. EKG leads. Stable bones. CONCLUSION: No acute chest process or significant interval change, as described. Thank you for the opportunity to participate in this patient's care.
[2017-07-16] MEDS: XANAX PO SCH (00:58)
[2017-07-16] MEDS: HEPARIN SUB-Q SCH ×2 (00:59→09:47)
[2017-07-16] MEDS: SODIUM CHLORIDE FLUSH SYRINGE 10 ML IV SCH ×2 (01:03→09:51)
[2017-07-16 01:11] LABS: Creatinine,Urine 12.8 mg/dL (0.1-20.0)
[2017-07-16 01:32] LABS: Bilirubin,Urine NEG (Negative); Blood,Urine SM (Negative); Color,Urine Yellow (Yellow); Mucus,Urine FEW /HPF; Protein,Urine <15 mg/dL mg/dL (Negative); Trichomonas,Urine FEW /HPF; Urobilinogen,Urine < 2.0 mg/dL (<2.0)
[2017-07-16 07:50] LABS: Calcium 8.9 mg/dL (8.4-10.2)
[2017-07-16] MEDS ORDERED: MAGNESIUM SULFATE 3 GM in NACL 0.9% 100 ML IV ONE (08:35)
--- NOTE | 2017-07-16 08:36 | Progress Note ---
Assessment and Plan 1. Acute kidney injury: SHANDA likely Vasomotor / hemodynamically mediated in the setting of volume depletion. Creatinine level is improving. IV fluids was stopped yesterday since patient had some SOB. Suspect CKD. Renal US is pending. 2. Hypokalemia: K level is better. Replete Mg. 3. Anemia. 4. COPD exacerbation. Subjective Date of service: 07/16/17 Interval history: Patient was seen and examined at the bedside. Objective - Vital Signs Vital signs: Vital Signs - 12hr 07/16/17 07/16/17 03:15 07:51 Temperature 98.3 F 97.5 F L Pulse Rate 81 70 Respiratory 16 20 Rate Blood Pressure 147/80 116/60 O2 Sat by Pulse 100 100 Oximetry - General Appearance General appearance: well-developed, appears stated age, other (no distress) EENT: ATNC, PERRL, hearing intact Neck: supple Respiratory: Present: Clear to Ascultation Cardiology: regular, S1S2, no murmurs Gastrointestinal: normoactive bowel sounds, no tenderness Integumentary: no rash Neurologic: confused, disoriented, other (right eye blind, able to move all 4 extremities) Musculoskeletal: other (no edema) Psychiatric: cooperative - Lab 07/15/17 05:06 07/16/17 07:08 Most recent lab results Calcium 8.9 mg/dL (8.4-10.2) 07/16/17 07:08 Phosphorus 3.40 mg/dL (2.5-4.5) 07/16/17 07:08 Magnesium 1.00 mg/dL (1.7-2.3) L 07/16/17 07:08 Urine Creatinine 12.8 mg/dL (0.1-20.0) 07/15/17 00:10 Urine Sodium 124 mmol/L 07/15/17 00:10
[2017-07-16] MEDS: NORVASC PO SCH (09:53)
[2017-07-16] MEDS: SENOKOT PO SCH (09:54)
[2017-07-16] MEDS ORDERED: STERILE WATER IV ONE (10:00)
[2017-07-16] MEDS ORDERED: MAGNESIUM SULFATE IV ONE (10:00)
[2017-07-16 10:10] VITALS: BP 114/43
--- NOTE | 2017-07-16 11:03 | Discharge Summary ---
Providers - Providers Date of Admission: 07/13/17 14:28 Attending physician: YVAN HERZOG MD 07/14/17 08:22 Consult to Dietitian/Nutrition [CONS] Routine Physician Instructions: Reason For Exam: Reason for Consult: Malnutrition 07/15/17 07:22 Consult to Physician [CONS] Routine Comment: ans. 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 Pt has dementia and is unable to provide detailed history. Pt history taken from ED staff and EMS. Pt family states that patient has experienced shortness of breath for the past 3 days with worsening symptoms over the past 1 day. EMS notified and upon arrival the patient was found to have Acute Hypoxemic respiratory Failure with Pulse oximetry of 87%. Pt transported to [facility] for further carea and evaluation. Pt seen and evaluated in ED and found to have COPD Exacerbation complicated by Respiratory Failure. Pt admitted to [facility] unit. No reports of fever, chills, Syncope, CP, palpitations, NVD, Trauma, Fall, productive cough, or recent ill contacts. COPD exacerbation - Treated with IV Solu-Medrol, Levaquin, nebulizer treatment, oxygen support - Follow blood culture - Patient showed marked improvement and discharged with appropriate home medications. Acute renal failure - treated with IV fluids - Showed some improvement and nephrology consulted and will follow the patient in the office. Hypokalemia - Supplemented, and resolved Severe malnutrition - Nutrition consulted The management plan was discussed with her daughter and the patient. patient discharged home with home hospice. Disposition: DC-50 TO HOSPICE (HOME) Time spent for discharge: 31 minutes - Discharge Diagnoses (1) COPD exacerbation Status: Acute (2) ARF (acute renal failure) Status: Acute Qualifiers: Acute renal failure type: with acute tubular necrosis Qualified Code(s): N17.0 - Acute kidney failure with tubular necrosis (3) Dementia Status: Acute Qualifiers: Dementia behavioral disturbance: without behavioral disturbance Core Measure Documentation - Palliative Care Palliative Care/ Comfort Measures: Hospice Care - Core Measures Any of the following diagnoses?: none Exam - Physical Exam Narrative exam: Not in cardiopulmonary distress. The patient is cachectic. Vital signs as documented. Head exam is unremarkable. No scleral icterus . Neck is without jugular venous distension, thyromegaly, or carotid bruits. Lungs scattered wheezing. Cardiac exam reveals regular rate and Rhythm. First and second heart sounds normal. No murmurs, rubs or gallops. Abdominal exam reveals normal bowel sounds, no masses, no organomegaly and no aortic enlargement. Extremities are nonedematous and both femoral and pedal pulses are normal. 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 No focal weakness. - Constitutional Vitals: Temp Pulse Resp BP Pulse Ox 97.5 F L 80 18 114/43 100 07/16/17 07:51 07/16/17 10:00 07/16/17 10:00 07/16/17 09:53 07/16/17 10:00 Plan Activity: advance as tolerated Weight Bearing Status: Full Weight Bearing Diet: advance as tolerated Special Instructions: home oxygen via Additional Instructions: Follow at [facility] in 1-2 weeks Follow up with: PRIMARY MD JAVI [Primary Care Provider] - 7 Days LAURIE HOWE MD [Staff Physician] - 7 Days Prescriptions: amLODIPine [Norvasc] 5 mg PO QDAY #30 tablet Levofloxacin [Levaquin TAB] 500 mg PO Q48H #5 tablet Prednisone [predniSONE 5 mg (6-Day Pack, 21 Tabs)] 5 mg PO .TAPER #1 tab.ds.pk
== END 2017-07-16 13:05 | disposition hospice, home (50) | DRG 682 ==
LOC: ED 11:46 → 3A 14:28 → 2B-ACE 15:53
PROVIDERS: ADMIT Internal Medicine; ATTEND Internal Medicine
PROC: 4A033R1 Measurement of Arterial Saturation, Peripheral, Percutaneous Approach (ICD-10-PCS; principal; 2017-07-13)
DX: N17.9 Acute kidney failure, unspecified (principal); J96.01 Acute respiratory failure with hypoxia; E43 Unspecified severe protein-calorie malnutrition; J44.1 Chronic obstructive pulmonary disease with (acute) exacerbation; Z68.1 Body mass index [BMI] 19.9 or less, adult; F03.90 Unspecified dementia, unspecified severity, without behavioral disturbance, psychotic disturbance, mood disturbance, and anxiety; E87.6 Hypokalemia; D64.9 Anemia, unspecified; Z85.9 Personal history of malignant neoplasm, unspecified; Z79.899 Other long term (current) drug therapy
CPT/HCPCS: 36415; 71045; 80048; 80074; 81001; 82550; 82570; 82803; 83735; 83880; 84100; 84300; 85007; 85025; 87040; 93005; 93010; 94640; 94760; 96365; 96366; 96375; J1644; J1940; J1956; J2920; J2930; J3475; J3480; J7030; J7050